=== PATIENT | male | born 1995 | race Caucasian/White ===

== ENCOUNTER 2018-11-06 01:43 | Emergency (ER) | payer SELFPAY ==
[~2018-11-06] VITALS: Ht 170.2 cm; Wt 64.5 kg
[2018-11-06 03:09] VITALS: BP 108/48
== END 2018-11-06 03:26 | disposition home or self-care (01) ==
LOC: EMS 01:45
DX: F10.129 Alcohol abuse with intoxication, unspecified (principal); Y90.9 Presence of alcohol in blood, level not specified